=== PATIENT | male | born 1955 | race Caucasian/White ===

== ENCOUNTER 2022-07-13 10:48 | Outpatient (CLI) | payer MEDICARE | END 2022-07-13 11:08 | LOC: SLEEP 10:48 | PROVIDERS: ATTEND Otolaryngology Otolaryngology/Facial Plastic Surgery | DX: G47.33 Obstructive sleep apnea (adult) (pediatric) (principal); I10 Essential (primary) hypertension; R06.83 Snoring; G47.10 Hypersomnia, unspecified | CPT/HCPCS: G0399 ==